=== PATIENT | male | born 1990 | race Caucasian/White ===

== ENCOUNTER 2020-09-08 08:47 | Day surgery (SDC) | payer SELFPAY ==
[~2020-09-08] VITALS: Ht 195.6 cm; Wt 86.4 kg
[~2020-09-08 08:47] MED LIST: DIFLUCAN100 MG PO; PERCOCET 7.5-31 EACH PO
--- NOTE | 2020-09-08 10:58 | NUR ---
09/08/20 1058 Story, Ruthie [id number] PATIENT AWAKENS EASILY, VERBALIZES NO PAIN, RESTING CALM, OXYGEN SATURATION >98. ICE TO LEFT SIDE OF FACE
[2020-09-08] MEDS ORDERED: HYDROCODON-ACE1 EAC8 PO (11:21)
--- NOTE | 2020-09-08 13:50 | OR ---
[facility] [address], [place] [address] Signed DATE OF OPERATION: 09/08/2020 SURGEON: Timbo Echevarria MD PREOPERATIVE DIAGNOSIS: Left preauricular subcutaneous mass (12-15 mm). POSTOPERATIVE DIAGNOSIS: Left preauricular subcutaneous mass (12-15 mm). PROCEDURE: Excision of left preauricular subcutaneous mass. ESTIMATED BLOOD LOSS: None. INDICATIONS: Edwin is a 30-year-old gentleman asked to see me for a subcutaneous mass in front of his left ear. He said it started as quite small, maybe 5 mm at most. It is now pushing 12-15 mm. He in fact grew the coy just to hide it. He said to his knowledge has never been infected or drained to the surface. He finally decided to come and have it removed. I explained to Edwin the nature of the vertical incision required to remove the lesion. He understands the expected intraop and postop course. There is risk to surgery including, but not limited to bleeding, infection, scarring, change in contour of the skin as well as possible need for additional surgeries based on pathology results. He had expressed understanding and wished to proceed. DESCRIPTION OF PROCEDURE: I met with Edwin and his in our preop area. We marked the lesion appropriately. After that, he was taken in the operating room and placed in the supine semi-recumbent position. He was placed under monitored anesthesia care. We rotated his head carefully to the right. The area was prepped and draped in the usual sterile fashion. He received preoperative antibiotics along with subcutaneous heparin. SCDs were utilized. The area was then prepped and draped in the usual sterile fashion. We injected copious amounts of local anesthetic around and underneath the lesion. A vertical incision was made over the lesion with a 15 blade knife. We went down and around the lesion with the help of needle-tip cautery as well as the hemostats. It appeared to be an epidermal cyst. The entire cyst and cyst wall were removed and passed off the field for pathologic review. The wound was irrigated and suctioned out until clear. The dermis was reapproximated with interrupted 5-0 subcuticular Monocryl sutures. The skin edges Electronically Signed By: TIMBO ECHEVARRIA MD 09/08/20 1350 PATIENT NAME: EDWIN DOCKERY OPERATIVE REPORT DATE OF : 89 REPORT #: [id number] PHYSICIAN: TIMBO ECHEVARRIA MD PCP: NO PRIMARY CARE PHYSICIAN REPORT IS CONFIDENTIAL AND NOT TO BE RELEASED WITHOUT AUTHORIZATION [facility] [address], [place] [address] Signed were reapproximated with a running 5-0 fast absorbing plain gut suture. No dressing was applied. After this, Edwin was transferred over to his hospital bed and taken into recovery room in stable condition. MD JAVIER Walton/MIMAL /[id number] cc: Timbo Echevarria MD Copies: TIMBO ECHEVARRIA MD ~ Electronically Signed By: TIMBO EHCEVARRIA MD 09/08/20 1350 PATIENT NAME: EDWIN DOCEKRY OPERATIVE REPORT DATE OF : [birth year] REPORT #: [id number] PHYSICIAN: TIMBO ECHEVARRIA MD PCP: NO PRIMARY CARE PHYSICIAN REPORT IS CONFIDENTIAL AND NOT TO BE RELEASED WITHOUT AUTHORIZATION
== END 2020-09-08 11:40 | disposition home or self-care (01) ==
LOC: DS 08:47
PROVIDERS: ATTEND Colon & Rectal Surgery
PROC: 0HB3XZZ Excision of Left Ear Skin, External Approach (ICD-10-PCS; principal; 2020-09-08 10:45)
DX: L72.0 Epidermal cyst (principal); H93.8X2 Other specified disorders of left ear; F17.220 Nicotine dependence, chewing tobacco, uncomplicated; Z88.0 Allergy status to penicillin
CPT/HCPCS: 99156; 99157; J0690; J1644; J1885; J2001; J2405; J2704; J3010; J7121